=== PATIENT | male | born 1980 | race African-American/Black ===

== ENCOUNTER 2024-07-06 19:40 | Emergency (ER) | payer OTHER ==
[~2024-07-06] VITALS: Ht 185.4 cm; Wt 88.0 kg
[2024-07-06 19:44] VITALS: O2SAT 99
[2024-07-06] MEDS: HYDROCODONE/ACETAMINOPHEN 10/325MG TABLET PO ONE (20:33)
[2024-07-06] MEDS: CEFAZOLIN 1000MG PREMIX 50 ML IV ONE (20:44)
[2024-07-06] MEDS ORDERED: IBUP-1525 MT (21:15)
[2024-07-06] MEDS ORDERED: HYDR-4001 MT (21:15)
[2024-07-06] MEDS ORDERED: CEPH500C2 MT (21:18)
[2024-07-06 22:10] VITALS: BP 143/93; PULSE 63; RESP 20; TEMP 36.9; O2SAT 99
== END 2024-07-06 22:17 | disposition home or self-care (01) ==
LOC: ER 19:40
DX: S82.202A Unspecified fracture of shaft of left tibia, initial encounter for closed fracture (principal); S82.402A Unspecified fracture of shaft of left fibula, initial encounter for closed fracture; Z79.1 Long term (current) use of non-steroidal anti-inflammatories (NSAID); Z79.899 Other long term (current) drug therapy; W34.09XA Accidental discharge from other specified firearms, initial encounter; Y93.89 Activity, other specified; Y92.89 Other specified places as the place of occurrence of the external cause; Y99.8 Other external cause status
CPT/HCPCS: 73590; 96365; 99284; J0690; Z7610